=== PATIENT | male | born 2000 | race Caucasian/White ===

== ENCOUNTER 2020-08-29 14:20 | Emergency (ER) | payer OTHER, SELFPAY ==
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
--- NOTE | 2020-08-29 14:30 | DI.RAD_ITS ---
EXAM: XR CERVICAL SP COPPOLA TRAUMA 2-3V CLINICAL HISTORY: Fall, pain left. TECHNIQUE: 2D digital imaging was performed. COMPARISON: No exams were available for comparison FINDINGS: BONES: No fracture or destructive lesion. Vertebral bodies are unremarkable. The left clavicular fra cture is described in detail on the x-ray of the left clavicle. DISKS: Intervertebral disc spaces are maintained. ALIGNMENT: Cervical spinal alignment is within normal limits. The odontoid and atlantoaxial articulat ions are normal. SOFT TISSUE: Normal. The lung apices are clear. IMPRESSION: Unremarkable radiographs of the cervical spine. Left clavicular fracture. DATA REPOSITORY: RADIATION DOSE DELIVERED:
[2020-08-29 14:36] VITALS: BP 138/78; PULSE 57; RESP 18; TEMP 36.7; O2SAT 100
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
[2020-08-29] MEDS: Ibuprofen 800 MG TAB PO (14:54)
[2020-08-29 16:09] VITALS: BP 135/62; PULSE 68; RESP 17; TEMP 36.2; O2SAT 99
== END 2020-08-29 16:09 | disposition home or self-care (01) ==
PROVIDERS: Emergency Provider Emergency Medicine; PCP Family Medicine
DX: S42.025A Nondisplaced fracture of shaft of left clavicle, initial encounter for closed fracture (principal); V18.0XXA Pedal cycle driver injured in noncollision transport accident in nontraffic accident, initial encounter; Y93.55 Activity, bike riding
CPT/HCPCS: 23500; 72040; 73000; 73030; L3650